=== PATIENT | female | born 1970 | race Caucasian/White ===

== ENCOUNTER 2025-02-12 06:26 | Day surgery (SDC) | payer OTHER, SELFPAY ==
[2025-02-11 14:33] VITALS: BMI 20.2
[2025-02-12] VITALS (7 sets, daily range): BP systolic 97–137; BP diastolic 69–82; BMI 20.2
[2025-02-12] MEDS: TYLENOL 1000 MG PO (10:55)
[2025-02-12] MEDS: NORMOSOL-R/PLASMALYTE-A 1000 IV (10:56)
== END 2025-02-12 15:38 | disposition home or self-care (01) ==
LOC: SDS 06:26
PROVIDERS: ATTENDING PHYSICIAN Surgery
DX: K64.8 Other hemorrhoids (principal); Z12.11 Encounter for screening for malignant neoplasm of colon; Q43.8 Other specified congenital malformations of intestine; K64.4 Residual hemorrhoidal skin tags
CPT/HCPCS: 46260; 45381; 36415; 88304; 93005